=== PATIENT | male | born 1970 | race Caucasian/White ===

== ENCOUNTER 2024-04-15 12:35 | Outpatient (CLI) | payer MEDICARE, SELFPAY ==
--- NOTE | ~2024-04-15 | MR_ITS ---
EXAMINATION: MR shoulder RT wo con DATE: 04/15/2024 13:23 INDICATION: Right shoulder pain. TECHNIQUE: Magnetic resonance imaging (MRI) of the right shoulder was performed without intravenous c ontrast. Sequences included axial PD-weighted FS FSE, coronal oblique PD-weighted FS FSE and T2-weigh cici FS FSE, and sagittal oblique T2-weighted FS FSE and T1-weighted FSE. COMPARISON: Right shoulder radiographs 12/26/2022 FINDINGS: Coracoacromial arch: The acromion undersurface is curved in morphology (type II). There is severe acromioclavicular joint osteoarthritis. There is soft tissue edema around the acromioclavicular joint. There is mild subacrom ial/subdeltoid bursitis. Rotator cuff: There is moderate supraspinatus tendinopathy and severe infraspinatus tendinopathy. Teres minor tendo n is normal. There is mild subscapularis tendinopathy. There is no asymmetric fatty atrophy of the ro tator cuff muscle bellies. Biceps tendon and glenoid labrum: Biceps tendon is in bicipital groove. Intra-articular biceps tendon is normal. The glenoid labrum is normal. Fluid: There is no glenohumeral joint effusion. Bones/cartilage: There is cartilage surface irregularity of glenoid and humeral head. IMPRESSION: 1. Severe rotator cuff tendinopathy. No tear. 2. Mild glenohumeral joint chondrosis. 3. Severe acromioclavicular joint osteoarthritis. 4. Mild subacromial/subdeltoid bursitis. Reviewed, dictated and finalized at location A. [facility]
== END 2024-04-15 12:36 | disposition home or self-care (01) ==
LOC: GOSHIMG 12:36
PROVIDERS: PCP Orthopaedic Surgery; Visit Provider Orthopaedic Surgery
DX: M25.511 Pain in right shoulder (principal)
CPT/HCPCS: 73221